=== PATIENT | female | born 1945 | race Asian ===

== ENCOUNTER 2022-01-30 19:13 | Inpatient (IN) ==
[2022-01-30 21:04] LABS: Basophils % 0.3 % (0.0-0.8); Eosinophils # 0.1 10*3/uL (0.0-0.87); Eosinophils % 0.5 % (0.00-10.9); Hematocrit 33.9 VOL% (35.7-47.0); Hemoglobin 11.3 GM/DL (12.0-16.0); Immature Granulocytes % 0.5 %; Immature Granulocytes Absolute 0.06 #; Lymphocytes # 1.4 10*3/uL (1.4-4.0); Lymphocytes % 12.8 % (21.3-54.2); Mean Corpuscular HGB Conc 33.3 GM/DL (32-36); Mean Corpuscular Volume 91.1 FL (87-102); Mean Platelet Volume 9.4 FL (9.6-12.0); Monocytes # 1.1 10*3/uL (0.11-0.8); Monocytes % 9.9 % (1.7-12.7); Platelet Count 225 T/CUMM (130-400); Red Blood Count 3.72 MC/CUMM (3.8-5.5); Red Cell Distribution Width 13.2 % (9.3-17.3); White Blood Count 11.2 T/CUMM (4-12)
[2022-01-30 21:21] LABS: Bacteria,Urine Occasional /HPF (Few); Mucus,Urine Occasional /LPF (Occasional); RBC,Urine 4 /HPF (0-4); Squamous Epithelial Cell,Urine Occasional /HPF (0-10)
[2022-01-30 21:24] LABS: Calcium 9.1 MG/DL (8.5-10.1); Osmolality,Calculated 258.2 MOS/KG (273-304); Potassium 4.7 MMOL/L (3.5-5.1)
[2022-01-30 21:26] LABS: Bilirubin,Urine Negative (Negative); Blood, Urine Trace mg/dL (Negative); Glucose,Urine (UA) Negative (Negative); Ketones,Urine Negative (Negative); Nitrite,Urine Positive (Negative); Protein,Urine Negative (Negative); Urine Appearance Clear (Clear); Urine Color Yellow (Yellow); Urine Urobilinogen 0.2 eU/dL (<2.0)
[2022-01-30] MEDS ORDERED: SODIUM CHLORIDE 0.9% 1,000 ML IV STA (21:38)
[2022-01-30] MEDS ORDERED: GENTAMICIN INJ 100 MG in SODIUM CHLORIDE 0.9% 100 ML IV STA (21:39)
[2022-01-30] MEDS ORDERED: ACETAMINOPHEN 325 MG TABLET PO PRN (21:42)
[2022-01-30] MEDS ORDERED: ONDANSETRON 4 MG/2 ML VIAL IV PRN (21:42)
[2022-01-30] MEDS: SODIUM CHLORIDE 0.9% 1,000 ML IV SCH (23:15)
[2022-01-31] MEDS: SODIUM CHLORIDE 0.9% 1,000 ML IV SCH ×3 (08:22→18:48)
[2022-01-31] MEDS: DOCUSATE SODIUM 100 MG CAPSULE PO SCH (08:23)
[2022-01-31] MEDS: PANTOPRAZOLE 40 MG TABLET PO SCH (08:23)
[2022-01-31 10:44] LABS: Basophils % 0.4 % (0.0-0.8); Eosinophils # 0.2 10*3/uL (0.0-0.87); Hemoglobin 10.3 GM/DL (12.0-16.0); Immature Granulocytes % 0.1 %; Immature Granulocytes Absolute 0.01 #; Lymphocytes # 1.4 10*3/uL (1.4-4.0); Mean Corpuscular HGB Conc 33.2 GM/DL (32-36); Mean Platelet Volume 9.3 FL (9.6-12.0); Monocytes # 0.7 10*3/uL (0.11-0.8); Monocytes % 9.1 % (1.7-12.7); Neutrophils % 69.4 % (38.7-73.9); Platelet Count 188 T/CUMM (130-400); Red Blood Count 3.37 MC/CUMM (3.8-5.5); Red Cell Distribution Width 13.3 % (9.3-17.3); White Blood Count 7.4 T/CUMM (4-12)
[2022-01-31 11:14] LABS: Albumin 2.7 G/DL (3.4-5.0); Bilirubin,Total 0.4 MG/DL (0.20-1.00); Calcium 8.4 MG/DL (8.5-10.1); Potassium 3.7 MMOL/L (3.5-5.1); Total Protein 6.3 G/DL (6.4-8.2)
[2022-01-31] MEDS: cefTRIAXone 1,000 MG in SODIUM CHLORIDE 0.9% 100 ML IV SCH (12:14)
[2022-01-31] MEDS ORDERED: REMDESIVIR 200 MG in SODIUM CHLORIDE 0.9% 210 ML IV ONE ×2 (15:00→17:30)
[2022-01-31] MEDS: SERTRALINE 50 MG TABLET PO SCH (21:20)
[2022-01-31] MEDS: ROSUVASTATIN 10 MG TABLET PO SCH (21:20)
[2022-02-01] MEDS: DOCUSATE SODIUM 100 MG CAPSULE PO SCH ×4 (00:26→20:56)
[2022-02-01] MEDS: SODIUM CHLORIDE 0.9% 1,000 ML IV SCH ×2 (06:06→09:09)
[2022-02-01] MEDS: LEVOTHYROXINE 25 MCG TABLET PO SCH (06:07)
[2022-02-01 06:25] LABS: Basophils % 0.3 % (0.0-0.8); Eosinophils # 0.3 10*3/uL (0.0-0.87); Eosinophils % 3.4 % (0.00-10.9); Hematocrit 32.2 VOL% (35.7-47.0); Hemoglobin 10.6 GM/DL (12.0-16.0); Immature Granulocytes % 0.3 %; Immature Granulocytes Absolute 0.02 #; Lymphocytes # 1.6 10*3/uL (1.4-4.0); Lymphocytes % 20.3 % (21.3-54.2); Mean Corpuscular HGB Conc 32.9 GM/DL (32-36); Mean Corpuscular Volume 93.1 FL (87-102); Mean Platelet Volume 9.4 FL (9.6-12.0); Monocytes # 0.6 10*3/uL (0.11-0.8); Monocytes % 7.5 % (1.7-12.7); Neutrophils % 68.2 % (38.7-73.9); Platelet Count 193 T/CUMM (130-400); Red Blood Count 3.46 MC/CUMM (3.8-5.5); Red Cell Distribution Width 13.3 % (9.3-17.3); White Blood Count 7.9 T/CUMM (4-12)
[2022-02-01 06:47] LABS: Alanine Aminotransferase 32 U/L (13-56); Albumin 2.6 G/DL (3.4-5.0); Alkaline Phosphatase 52 U/L (45-117); Aspartate Amino Transferase 18 U/L (0-37); Bilirubin,Total < 0.39 MG/DL (0.20-1.00); Blood Urea Nitrogen 9 MG/DL (7-18); Calcium 8.5 MG/DL (8.5-10.1); Carbon Dioxide 22 MMOL/L (21-32); Chloride 109 MMOL/L (98-107); Glucose 84 MG/DL (74-106); Osmolality,Calculated 270.8 MOS/KG (273-304); Potassium 3.7 MMOL/L (3.5-5.1); Sodium 137 MMOL/L (136-145); Total Protein 6.3 G/DL (6.4-8.2)
[2022-02-01] MEDS: PANTOPRAZOLE 40 MG TABLET PO SCH (09:08)
[2022-02-01] MEDS: LOSARTAN 50 MG TABLET PO SCH (09:08)
[2022-02-01] MEDS: cefTRIAXone 1,000 MG in SODIUM CHLORIDE 0.9% 100 ML IV SCH (09:09)
[2022-02-01] MEDS: REMDESIVIR 100 MG in SODIUM CHLORIDE 0.9% 100 ML IV SCH (13:39)
[2022-02-01] MEDS ORDERED: guaiFENesin 200 MG/10 ML UDCUP PO PRN (20:46)
[2022-02-01] MEDS: SERTRALINE 50 MG TABLET PO SCH (20:49)
[2022-02-01] MEDS: ROSUVASTATIN 10 MG TABLET PO SCH (20:50)
[2022-02-01] MEDS ORDERED: guaiFENesin 200 MG/10 ML UDCUP PO SCH (21:00)
[2022-02-02] MEDS: SODIUM CHLORIDE 0.9% 1,000 ML IV SCH ×2 (01:08→17:55)
[2022-02-02] MEDS: LEVOTHYROXINE 25 MCG TABLET PO SCH (05:48)
[2022-02-02 07:53] LABS: Alanine Aminotransferase 30 U/L (13-56); Albumin 2.7 G/DL (3.4-5.0); Alkaline Phosphatase 57 U/L (45-117); Aspartate Amino Transferase 16 U/L (0-37); Bilirubin,Total < 0.39 MG/DL (0.20-1.00); Blood Urea Nitrogen 10 MG/DL (7-18); Calcium 8.9 MG/DL (8.5-10.1); Carbon Dioxide 23 MMOL/L (21-32); Chloride 107 MMOL/L (98-107); Glucose 86 MG/DL (74-106); Osmolality,Calculated 272.7 MOS/KG (273-304); Potassium 3.4 MMOL/L (3.5-5.1); Sodium 138 MMOL/L (136-145); Total Protein 6.6 G/DL (6.4-8.2)
[2022-02-02] MEDS: REMDESIVIR 100 MG in SODIUM CHLORIDE 0.9% 100 ML IV SCH (09:37)
[2022-02-02] MEDS: DOCUSATE SODIUM 100 MG CAPSULE PO SCH ×2 (09:39→21:07)
[2022-02-02] MEDS: LOSARTAN 50 MG TABLET PO SCH (11:29)
[2022-02-02] MEDS: PANTOPRAZOLE 40 MG TABLET PO SCH (11:30)
[2022-02-02] MEDS: cefTRIAXone 1,000 MG in SODIUM CHLORIDE 0.9% 100 ML IV SCH (12:02)
[2022-02-02] MEDS: SERTRALINE 50 MG TABLET PO SCH (20:30)
[2022-02-02] MEDS: ROSUVASTATIN 10 MG TABLET PO SCH (20:30)
[2022-02-03] MEDS: LEVOTHYROXINE 25 MCG TABLET PO SCH (05:49)
[2022-02-03] MEDS ORDERED: MAGNESIUM SULF RIDER 2 GM/50 ML PREMIX IV ONE (06:00)
[2022-02-03 06:51] LABS: Basophils % 0.4 % (0.0-0.8); Eosinophils # 0.5 10*3/uL (0.0-0.87); Hematocrit 32.3 VOL% (35.7-47.0); Hemoglobin 10.7 GM/DL (12.0-16.0); Immature Granulocytes % 0.2 %; Immature Granulocytes Absolute 0.01 #; Lymphocytes # 2.1 10*3/uL (1.4-4.0); Lymphocytes % 37.2 % (21.3-54.2); Mean Corpuscular HGB Conc 33.1 GM/DL (32-36); Mean Corpuscular Volume 90.5 FL (87-102); Monocytes # 0.5 10*3/uL (0.11-0.8); Monocytes % 9.6 % (1.7-12.7); Neutrophils % 44.6 % (38.7-73.9); Platelet Count 223 T/CUMM (130-400); Red Blood Count 3.57 MC/CUMM (3.8-5.5); Red Cell Distribution Width 13.1 % (9.3-17.3); White Blood Count 5.7 T/CUMM (4-12)
[2022-02-03 07:25] LABS: Alanine Aminotransferase 25 U/L (13-56); Albumin 2.6 G/DL (3.4-5.0); Alkaline Phosphatase 54 U/L (45-117); Aspartate Amino Transferase 15 U/L (0-37); Bilirubin,Total < 0.39 MG/DL (0.20-1.00); Blood Urea Nitrogen 10 MG/DL (7-18); Calcium 9.1 MG/DL (8.5-10.1); Carbon Dioxide 22 MMOL/L (21-32); Chloride 107 MMOL/L (98-107); Glucose 84 MG/DL (74-106); Osmolality,Calculated 272.7 MOS/KG (273-304); Potassium 3.4 MMOL/L (3.5-5.1); Sodium 138 MMOL/L (136-145); Total Protein 6.4 G/DL (6.4-8.2)
[2022-02-03] MEDS ORDERED: POTASSIUM CHLORIDE 20 MEQ TABLET PO ONE (09:00)
[2022-02-03] MEDS: cefTRIAXone 1,000 MG in SODIUM CHLORIDE 0.9% 100 ML IV SCH (10:06)
[2022-02-03] MEDS: LOSARTAN 50 MG TABLET PO SCH (10:31)
[2022-02-03] MEDS: DOCUSATE SODIUM 100 MG CAPSULE PO SCH (10:37)
[2022-02-03] MEDS: PANTOPRAZOLE 40 MG TABLET PO SCH (10:38)
[2022-02-03 12:32] VITALS: BP 129/77
== END 2022-02-03 14:23 | disposition home or self-care (01) | DRG 178 ==
LOC: N.ED 19:13 → N.EDINP 21:42 → N.5E 01-31 01:08
PROVIDERS: ADMIT Family Medicine; ATTEND Family Medicine